=== PATIENT | male | born 1980 | race Caucasian/White ===

== ENCOUNTER 2016-12-17 02:18 | Emergency (ER) | payer SELFPAY ==
[~2016-12-17] VITALS: Ht 162.6 cm; Wt 90.0 kg
[2016-12-17 05:40] LABS: BASOPHILS % 0.1 % (0.0-2.0); EOSINOPHILS % 0.2 % (0.0-5.0); HEMOGLOBIN. 14.4 g/dL (14.0-18.0); LYMPHOCYTES % 10.4 % (20.0-50.0); MEAN CORPUSCULAR HEMOGLOBIN 31.7 pg (28.0-32.0); MEAN CORPUSCULAR VOLUME 92.7 fL (80.0-94.0); MEAN PLATELET VOLUME 8.1 fl (7.4-10.4); NEUTROPHILS % 84.3 % (40.0-76.0); PLATELET 313 x1000/uL (130-400); RED BLOOD CELL COUNT 4.53 mill/uL (4.7-6.1); RED CELL DISTRIBUTION WIDTH 13.6 % (11.6-14.6)
[2016-12-17 05:45] LABS: CARBON DIOXIDE 28 mEq/L (21-32); CHLORIDE 105 mEq/L (98-107); ETHANOL BLOOD < 10 mg/dL
[2016-12-17 06:12] LABS: PROTHROMBIN TIME 10.8 sec (9.4-11.6)
[2016-12-17 06:45] VITALS: BP 105/58
== END 2016-12-17 07:27 | disposition home or self-care (01) ==
LOC: ER 02:23
DX: S09.90XA Unspecified injury of head, initial encounter (principal); T70.0XXA Otitic barotrauma, initial encounter; X58.XXXA Exposure to other specified factors, initial encounter; Y93.89 Activity, other specified; Y92.89 Other specified places as the place of occurrence of the external cause; Y99.8 Other external cause status
CPT/HCPCS: 36415; 70450; 72125; 80053; 82962; 83690; 85025; 85610; 99285; G0482; Z7610